=== PATIENT | female | born 1935 | race Caucasian/White ===

== ENCOUNTER 2018-07-27 13:27 | Inpatient (IN) | payer BC, MEDICARE ==
[2018-07-27] MEDS ORDERED: ALBUTEROL SULFATE/IPRATROPIUM 3 ML NEBU IH ONE (13:30)
[2018-07-27] MEDS ORDERED: METHYLPREDNISOLONE SOD SUCC/PF 125 MG/2 ML VIAL ONE (13:30)
[2018-07-27] MEDS ORDERED: METHYLPREDNISOLONE SOD SUCC/PF 40 MG/ML VIAL IV ONE (13:33)
[2018-07-27] MEDS ORDERED: LORazepam 2 MG/ML DISP.SYRIN IV ONE (13:35)
[2018-07-27 13:50] LABS: Hematocrit 46.5 % (37.0-47.0); Mean Cell Volume 95.7 fl (78-100); Mean Corpuscular Hemoglobin 30.9 pg (27-31); Mean Corpuscular Hgb Conc 32.3 g/dl (32-36); Mean Platelet Volume 9.4 fl (8-12.5); Neutrophil # 9.1 K/mm3 (1.3-6.0); Neutrophil % 68.9 % (42-75.0); Platelet Count 292 K/mm3 (150-450); Red Blood Count 4.86 M/mm3 (4.2-5.4); White Blood Count 13.2 K/mm3 (4.0-10.5)
[2018-07-27 14:06] LABS: Albumin * 3.7 gm/dl (3.4-5.0); Anion Gap 9.4 mmol/L (6.8-13.8); BUN/Creatinine Ratio 15.6 (9.0-21.6); Bilirubin, Total 0.4 mg/dL (0.0-1.1); Calcium * 9.1 mg/dL (7.9-10.9); Carbon Dioxide 28.8 mmol/L (24-32.6); Potassium 4.2 mmol/L (3.4-4.6); Total Protein 7.2 gm/dL (6.2-8.2); Troponin I 0.03 ng/mL (0.00-0.10)
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
[2018-07-27] MEDS ORDERED: RINGER'S SOLUTION,LACTATED 1,000 ML IV PRN ×2 (15:37→16:04)
[2018-07-27] MEDS ORDERED: BUPIVACAINE HCL/EPINEPHRINE/PF 30 ML VIAL IJ ONE (15:45)
[2018-07-27] MEDS ORDERED: FUROSEMIDE 20 MG TABLET PO PRN (16:05)
[2018-07-27] MEDS ORDERED: ALBUTEROL SULFATE 2.5 MG IH PRN (16:05)
[2018-07-27] MEDS ORDERED: ALBUTEROL SULFATE 2.5 MG/0.5 ML VIAL.NEB IH PRN (16:05)
[2018-07-27] MEDS ORDERED: tiZANidine HCL 4 MG TABLET PO PRN (16:05)
--- NOTE | 2018-07-27 16:22 | ANES ---
Post Anesthesia Discharge - Transfer of Care Transfer of Care handoff given to nurse: Yes - Discharge to [facility]SU Discharge to ASU-no complications/pt stable: Yes - Room as ASU.
[2018-07-27] MEDS: HYDROcodone/ACETAMINOPHEN 1 EACH TABLET PO PRN ×2 (17:36→21:56)
--- NOTE | 2018-07-27 18:12 | OR ---
Operative Report - Dictated Report Narrative: OPERATIVE REPORT DATE OF OPERATION: 07/27/2018 PREOPERATIVE DIAGNOSIS: Spontaneous right pneumothorax POSTOPERATIVE DIAGNOSIS: Same (relieved) OPERATION: Insertion of right chest tube SURGEON: Enrrique Schaefer MD ANESTHESIA: MAC/local Kemar Christianson CRNA INDICATIONS FOR PROCEDURE: The patient is an 83-year-old female with COPD. She has had recent chest congestion and a cough. Today she had the sudden onset of severe right chest pain with increased difficulty breathing. After presenting to the emergency room a chest x-ray was obtained revealing a large right pneumothorax FINDINGS: Successful placement of right chest tube with reexpansion of the right lung on post procedure chest x-ray NARRATIVE OF PROCEDURE: The patient was identified preoperatively, the surgical site was marked, and prior to the administration of anesthetic a multidisciplina ry timeout was observed. With the patient in the recumbent position the right upper chest and axilla were prepped with DuraPrep and isolated with sterile towels. A point was chosen in the anterior axillary line for tube insertion. The skin, subcutaneous tissue, and periosteum of the chest and rib were infiltrated with 0.5% Marcaine with epinephrine. A short skin incision was made. The right chest was accessed with a 20 Kinyarwanda trocar catheter. The catheter was then directed anteriorly and superiorly into the right apex. The trocar was removed and the catheter connected to underwater seal. There was prompt evacuation of air. The tube was secured to the chest with a 0 silk suture and a dressing of 4 x 4's and Medipore tape applied. The tube was additionally secured to the right lower quadrant of the abdomen with Metapore tape to prevent tension. The operative procedure was terminated at this point. The patient tolerated the anesthetic and procedure well without complication. All counts were correct. No specimens were submitted. The patient was transferred briefly to the recovery room where chest x-ray demonstrated reexpansion of the right lung and good tube position. The patient was then transferred to the floor awake and in stable condition. Reviewed and electronically signed
[2018-07-27] MEDS: MORPHINE SULFATE 2 MG/ML DISP.SYRIN IV PRN (18:13)
[2018-07-27 19:58] LABS: Urine Bilirubin Negative (NEGATIVE); Urine Blood 250 /ul (NEGATIVE); Urine Ketone Negative (NEGATIVE); Urine Nitrite Negative (NEGATIVE); Urine Protein Negative (NEGATIVE); Urine Specific Gravity 1.025 SP.GR. (1.005-1.010); Urine Urobilinogen Normal (NORMAL)
[2018-07-27 20:12] LABS: Urine Appearance Slightly Cloudy (CLEAR); Urine Bacteria 1+; Urine Color Yellow
[2018-07-27] MEDS: MELATONIN 3,000 MCG TABLET PO SCH (22:32)
[2018-07-27] MEDS: ENALAPRIL MALEATE 20 MG TABLET PO SCH (22:33)
[2018-07-27] MEDS: SIMVASTATIN 5 MG TABLET PO SCH (22:33)
[2018-07-27] MEDS: ALPRAZolam 1 MG TABLET PO SCH (22:36)
[2018-07-28] MEDS: PANTOPRAZOLE SODIUM 40 MG TABLET.EC PO SCH (06:50)
[2018-07-28] MEDS: LEVOTHYROXINE SODIUM 75 MCG TABLET PO SCH (06:50)
[2018-07-28] MEDS: HYDROcodone/ACETAMINOPHEN 1 EACH TABLET PO PRN ×4 (06:50→22:56)
--- NOTE | 2018-07-28 07:39 | PN ---
Subjective - Date and Time Seen Date: 07/28/18 Time: 07:21 Subjective Narrative: Pt. states having quite a bit of R upper back and lateral chest pain, that seems muscular in nature. She denies any particular trauma, but had been coughing very forcefully just before her acute CP/PTX, so believe this to be muscular strain. She is taking morphine or pain pills which helps her pain. Explained to her and her daughter I don't want to NSAIDs or muscle relaxors due to SE issues or somnolence issues. She does feel she is breathing better than yesterday when everything happened, but still having some breathing issues. Objective - Review of Systems Generalized/Overall Review: Reports: Malaise, Fatigue. Denies: Chills, Fever EENTM: Reports: No Symptoms Reported Respiratory: Reports: Cough, Shortness of Breath, Wheezing Cardiac: Reports: Chest Pain Abdominal: Reports: No Symptoms Reported Genitourinary Symptoms: Reports: No Symptoms Reported Musculoskeletal Complaints: Reports: Back Pain, Muscle Pain Neurological: Reports: No Symptoms Reported Skin: Reports: No Symptoms Reported Endocrine: Reports: No Symptoms Reported - Vitals Vitals: Last Vital Signs Temp 36.5 C 07/28/18 07:05 Pulse 66 07/28/18 07:05 Resp 16 07/28/18 07:05 BP 146/73 07/28/18 07:05 Pulse Ox 99 07/28/18 07:05 - Abnormal Lab Findings Abnormal Lab Findings: Abnormal Lab Results 07/27/18 07/27/18 07/27/18 Range/Units 13:34 13:44 13:44 WBC 13.2 H (4.0-10.5) K/mm3 Immature Gran % (Auto) 1.10 H (0.001-0.429) % Immature Gran # (Auto) 0.14 H (0.000-0.0310) K/mm3 Lymphocytes % 15.3 L (20-51) % Monocytes % 10.4 H (0.0-9) % Eosinophils % 3.2 H (0.0-3.0) % Basophils % 1.1 H (0.0-1.0) % Neutrophils # 9.1 H (1.3-6.0) K/mm3 Monocytes # 1.4 H (0.0-1.0) k/mm3 D-Dimer (0.19-0.49) ug/mL pCO2 45.7 H (32.0-45.0) mmHg pO2 56.5 L (83.0-108.0) mmHg Total CO2 26.1 H (19.0-24.0) mmol/L ABG O2 Sat (Measured) 87.9 L (94.0-98.0) % Est GFR (Non-Af Amer) 51 L (60-130) mL/min Random Glucose 144 H (70-110) mg/dL Urine Blood (NEGATIVE) /ul Ur Leukocyte Esterase (NEGATIVE) /ul Urine RBC (0-5) /hpf Urine WBC (0-5) /hpf Urine Bacteria (NONE) 07/27/18 07/27/18 Range/Units 13:44 19:53 WBC (4.0-10.5) K/mm3 Immature Gran % (Auto) (0.001-0.429) % Immature Gran # (Auto) (0.000-0.0310) K/mm3 Lymphocytes % (20-51) % Monocytes % (0.0-9) % Eosinophils % (0.0-3.0) % Basophils % (0.0-1.0) % Neutrophils # (1.3-6.0) K/mm3 Monocytes # (0.0-1.0) k/mm3 D-Dimer 3.31 H (0.19-0.49) ug/mL pCO2 (32.0-45.0) mmHg pO2 (83.0-108.0) mmHg Total CO2 (19.0-24.0) mmol/L ABG O2 Sat (Measured) (94.0-98.0) % Est GFR (Non-Af Amer) (60-130) mL/min Random Glucose (70-110) mg/dL Urine Blood 250 H (NEGATIVE) /ul Ur Leukocyte Esterase 25 H (NEGATIVE) /ul Urine RBC 5-10 H (0-5) /hpf Urine WBC 5-10 H (0-5) /hpf Urine Bacteria 1+ H (NONE) - Exam Constitutional: Present: Alert, Oriented x3, Cooperative, Mild distress, Moderate distress, Elderly ENT Exam: Present: hearing grossly normal Neck: Present: supple Respiratory: Present: normal breath sounds, respiratory distress - mild to moderate - on O2, can almost complete a sentence without a breath., wheezing Cardiovascular/Chest: Present: regular rate, rhythm Abdomen: Present: Normal bowel sounds, soft, nondistended Extremity: Present: other - SCD's meenu LE Skin Exam: Present: normal color Neurologic: Present: oriented x 3, depressed affect Appearance: Present: appropriate appearance, appropriate insight, neat, no memory impairment Eye contact: Present: cooperative, good eye contact, normal speech Thoughts: Present: normal thought pattern, no apparent hallucination Assessment/Plan - Problems/Diagnosis (1) Muscle spasm Problem: Acute Narrative: due to coughing. will give it time, but do pain control. No muscle relaxors for now, but might consider xanaflex. (2) Pneumothorax on right Problem: Acute Narrative: appears resolved on CXR after chest tube placement. Still with SOB but believe this is due to COPD. Chest tube managment per Dr. Schaefer. (3) SOB (shortness of breath) Problem: Acute Narrative: due to COPD (4) COPD (chronic obstructive pulmonary disease) Problem: Chronic Qualifiers: COPD type: chronic bronchitis Narrative: Wheezing this am, will do scheduled nebs during day to see if this won't help her breathing. (5) Discharge planning issues Problem: Acute Narrative: Lung re-inflated last pm. Anticipate continued chest tube to underwater seal for minimum of 24hrs, but will defer to Dr. Schaefer for management. Still anticipate her being here at least one more midnight (for a minimum of 2 midnight stay) with possibility of being here until Monday. Do believe going to [facility] or the [place] would be a very good option for her, at least during the winter. If she is unwilling to do this, would recommend at least as she is home bound and does not get out unless her family assists her.
[2018-07-28] MEDS: ALBUTEROL SULFATE 2.5 MG/0.5 ML VIAL.NEB IH SCH ×5 (08:23→22:12)
--- NOTE | 2018-07-28 10:15 | PN ---
Dictated Progress Note - Date and Time Seen: Date: 07/28/18 Time: 10:13 - Progress Note Narrative: Vital Signs - Last Taken Temp 36.5 C 07/28/18 07:05 Pulse 80 07/28/18 08:33 Resp 19 07/28/18 08:33 BP 146/73 07/28/18 07:05 Pulse Ox 99 07/28/18 08:23 Abnormal/Pending Laboratory Last 24 HRS 07/27/18 07/27/18 07/27/18 19:53 13:44 13:44 WBC Immature Gran % (Auto) Immature Gran # (Auto) Lymphocytes % Monocytes % Eosinophils % Basophils % Neutrophils # Monocytes # D-Dimer 3.31 H pCO2 pO2 Total CO2 ABG O2 Sat (Measured) Est GFR (Non-Af Amer) 51 L Random Glucose 144 H Urine Blood 250 H Ur Leukocyte Esterase 25 H Urine RBC 5-10 H Urine WBC 5-10 H Urine Bacteria 1+ H 07/27/18 07/27/18 13:44 13:34 WBC 13.2 H Immature Gran % (Auto) 1.10 H Immature Gran # (Auto) 0.14 H Lymphocytes % 15.3 L Monocytes % 10.4 H Eosinophils % 3.2 H Basophils % 1.1 H Neutrophils # 9.1 H Monocytes # 1.4 H D-Dimer pCO2 45.7 H pO2 56.5 L Total CO2 26.1 H ABG O2 Sat (Measured) 87.9 L Est GFR (Non-Af Amer) Random Glucose Urine Blood Ur Leukocyte Esterase Urine RBC Urine WBC Urine Bacteria Culture 07/27/18 18:00 Urine Culture - Preliminary Urine,Voided No Growth VS have been normal. Eupnic on 2L NC. No obvious clinical air leak, and CXR shows re-expansion Will trial clamp tube and obtain CXR in 4 hrs
[2018-07-28] MEDS: POLYETHYLENE GLYCOL 3350 119 GM BTL PO SCH (10:17)
[2018-07-28] MEDS: CITALOPRAM HYDROBROMIDE 10 MG TABLET PO SCH (10:19)
[2018-07-28] MEDS: ENALAPRIL MALEATE 20 MG TABLET PO SCH ×2 (10:20→20:32)
[2018-07-28] MEDS: amLODIPine BESYLATE 5 MG TABLET PO SCH (10:22)
[2018-07-28] MEDS: MELATONIN 3,000 MCG TABLET PO SCH (20:32)
[2018-07-28] MEDS: SIMVASTATIN 5 MG TABLET PO SCH (20:33)
[2018-07-28] MEDS: ALPRAZolam 1 MG TABLET PO SCH (20:35)
[2018-07-29] MEDS: ALBUTEROL SULFATE 2.5 MG/0.5 ML VIAL.NEB IH SCH ×6 (02:02→23:41)
[2018-07-29] MEDS: HYDROcodone/ACETAMINOPHEN 1 EACH TABLET PO PRN ×3 (04:44→21:03)
[2018-07-29] MEDS: MORPHINE SULFATE 2 MG/ML DISP.SYRIN IV PRN (07:01)
[2018-07-29] MEDS: LEVOTHYROXINE SODIUM 75 MCG TABLET PO SCH (07:05)
[2018-07-29] MEDS: PANTOPRAZOLE SODIUM 40 MG TABLET.EC PO SCH (07:05)
--- NOTE | 2018-07-29 08:07 | PN ---
Subjective - Date and Time Seen Date: 07/29/18 Time: 07:53 Subjective Narrative: Having increased pain this am, but appears to be more muscles of her upper back, not her lung/PTX. she has slept well as she normally sleeps on her right side. Does state that her breathing is better. she declined going to assisted living as she tried [facility] and it wasn't a very "warm" place. She hasn't gone to see if [place] would be better. She wants to try to go home, but is willing to change if she feels she can't manage at home "alone". (She has family and friends, but they can't be there all the time). Nursing does note that her pain has been 7/10, IV morphine given. Pt. states it does help. Chest tube has been clamped since yesterday afternoon without any sx. CXR shows continued re-expansion after 4 hrs. Objective - Review of Systems Generalized/Overall Review: Reports: Fatigue. Denies: Chills, Fever EENTM: Reports: No Symptoms Reported Respiratory: Reports: Cough. Denies: Shortness of Breath, Wheezing Cardiac: Reports: Chest Pain. Denies: Palpitations Abdominal: Reports: No Symptoms Reported Genitourinary Symptoms: Reports: No Symptoms Reported Musculoskeletal Complaints: Reports: Back Pain Neurological: Reports: No Symptoms Reported Skin: Reports: No Symptoms Reported Endocrine: Reports: No Symptoms Reported - Vitals Vitals: Last Vital Signs Temp 36.4 C 07/29/18 06:45 Pulse 79 07/29/18 07:00 Resp 19 07/29/18 07:00 BP 161/86 H 07/29/18 06:45 Pulse Ox 98 07/29/18 07:52 - Exam Constitutional: Present: Alert, Oriented x3, Cooperative, Mild distress, Elderly ENT Exam: Present: hearing grossly normal Neck: Present: supple Respiratory: Present: lungs clear, no respiratory distress - able to complete sentence. Absent: wheezing Cardiovascular/Chest: Present: regular rate, rhythm Abdomen: Present: Normal bowel sounds Extremity: Present: other - SCD's meenu LE Skin Exam: Present: normal color Neurologic: Present: normal mood/affect, oriented x 3 Appearance: Present: appropriate appearance, appropriate insight, neat, no memory impairment Eye contact: Present: cooperative, good eye contact, normal speech Thoughts: Present: normal thought pattern, no apparent hallucination Assessment/Plan - Problems/Diagnosis (1) Muscle spasm Problem: Acute Narrative: d/w her good hydration. consider biofreeze to R upper back/shoulder (2) Pneumothorax on right Problem: Acute Narrative: resolved with Chest tube. defer to Dr. Schaefer for management. Will watch her for 24hrs post removal of the Chest tube to be sure PTX remains resolved. (3) SOB (shortness of breath) Problem: Acute Narrative: resolved with nebs and Chest tube/PTX resolution. (4) COPD (chronic obstructive pulmonary disease) Problem: Chronic Qualifiers: COPD type: chronic bronchitis Narrative: better with scheduled nebs. continue. (5) Back pain Problem: Acute Qualifiers: Back pain location: thoracic back pain Chronicity: acute Back pain latera lity: right Qualified Code(s): M54.6 - Pain in thoracic spine Narrative: due to muscle spasm. could have a component from the PTX. continue to control pain with norco and prn IV morphine. will need to control pain with PO meds in order to discharge home. (6) Hypoxia Problem: Acute Narrative: due to pneumothorax, compounded by Chronic COPD. sats are improved after chest tube placement. will wean off O2. (7) Acute respiratory failure Problem: Acute Qualifiers: Respiratory failure complication: hypoxia Qualified Code(s): J96.01 - Acute respiratory failure with hypoxia Narrative: due to Pneumothorax (PTX) combined with Chronic COPD with possible acute exacerbation of COPD given her wheezing and increased cough that probably caused her PTX. Her sats are improved so will work to wean off O2, keeping sats at least in the low 90's. Will Ambulate after the Chest tube is out to be sure she maintains her sats > 88% when ambulating. (8) Discharge planning issues Problem: Acute Narrative: hopefully can discharge home in the am if Chest tube is out, she's off O2 and ambulatory sats are > 88% and her pain is controlled with PO meds only.
[2018-07-29] MEDS: CITALOPRAM HYDROBROMIDE 10 MG TABLET PO SCH (08:33)
[2018-07-29] MEDS: POLYETHYLENE GLYCOL 3350 119 GM BTL PO SCH (08:33)
[2018-07-29] MEDS: amLODIPine BESYLATE 5 MG TABLET PO SCH (08:34)
[2018-07-29] MEDS: ENALAPRIL MALEATE 20 MG TABLET PO SCH ×2 (08:34→21:02)
--- NOTE | 2018-07-29 10:20 | PN ---
Dictated Progress Note - Date and Time Seen: Date: 07/29/18 Time: 10:00 - Progress Note Narrative: Vital Signs - Last Taken Temp 36.4 C 07/29/18 06:45 Pulse 71 07/29/18 08:34 Resp 19 07/29/18 07:00 BP 161/86 H 07/29/18 08:34 Pulse Ox 98 07/29/18 07:52 Culture 07/27/18 18:00 Urine Culture - Preliminary Urine,Voided No Pathogens Isolated 07/27/18 13:44 Blood Culture - Preliminary Blood NO GROWTH 24 HOURS VS normal, no problems breathing CXR shows full expansion with chest tube clamped Chest tube removed, occlusive dressing placed Would re-check CXR in AM prior to D/C. Leave current dressing x 24hrs, then change daily, with suture removal 08/03--08/07
[2018-07-29] MEDS: MELATONIN 3,000 MCG TABLET PO SCH (21:02)
[2018-07-29] MEDS: SIMVASTATIN 5 MG TABLET PO SCH (21:02)
[2018-07-29] MEDS: ALPRAZolam 1 MG TABLET PO SCH (21:03)
[2018-07-30] MEDS: HYDROcodone/ACETAMINOPHEN 1 EACH TABLET PO PRN ×2 (01:04→06:48)
[2018-07-30] MEDS: ALBUTEROL SULFATE 2.5 MG/0.5 ML VIAL.NEB IH SCH ×3 (03:46→10:56)
[2018-07-30] MEDS: PANTOPRAZOLE SODIUM 40 MG TABLET.EC PO SCH (06:58)
[2018-07-30] MEDS: LEVOTHYROXINE SODIUM 75 MCG TABLET PO SCH (06:58)
--- NOTE | 2018-07-30 07:26 | DS ---
(1) Muscle spasm Problem: Acute (2) Pneumothorax on right Problem: Acute (3) SOB (shortness of breath) Problem: Acute (4) COPD (chronic obstructive pulmonary disease) Problem: Chronic Qualifiers: COPD type: chronic bronchitis (5) Back pain Problem: Acute Qualifiers: Back pain location: thoracic back pain Chronicity: acute Back pain laterality: right Qualified Code(s): M54.6 - Pain in thoracic spine (6) Hypoxia Problem: Acute (7) Acute respiratory failure Problem: Acute Qualifiers: Respiratory failure complication: hypoxia Qualified Code(s): J96.01 - Acute respiratory failure with hypoxia (8) Discharge planning issues Problem: Acute Description of Stay: Pt. Admitted for Chest tube placement due to acute respiratory distress/failure with hypoxia from a pneumothorax. Pt. did receive immediate relief and there was immediate expansion of the lung. Tube was clamped within 18 hrs of placement and removed within 40hrs of placement, with maintenance of lung re- expansion. She remained on O2 for the next 36hrs, with some of this being attributed to COPD exacerbation, which was improved with scheduled nebs. Her pain initially was being controlled with both PO [place] and IV Morphine, but the morphine was able to be weaned off completely 24hrs prior to D/C and her pain was 3-4 on [place] at time of discharge. She did have quite a bit of pain from muscle spasms of the right upper back and shoulder, but this was improved with [place], xanaflex, morphine and topical biofreeze. It was recommended to her to continue the biofreeze OTC to this area until resolved. Will do Rx for [place] and xanaflex. She was d/c'd home in stable condition, with good BS on the right, scattered wheezes still on the left - do will continue scheduled nebs at home. She was offered HH but declined. She was recommended assisted living, but declined. Her blood pressure remained stable, though were elevated at times when she was in pain. Procedures Performed: see notes below List Procedures: Chest tube placement by Dr. Schaefer. Results and Findings: Pending Mircobiology Results 07/27/18 13:44 Blood Blood Culture - Preliminary NO GROWTH AFTER 48 HOURS 07/27/18 18:00 Urine,Voided Urine Culture - Preliminary No Pathogens Isolated Lab Pending Results 07/27/18 13:34: pCO2 45.7 H, pO2 56.5 L, HCO3 24.7, Total CO2 26.1 H, Base Excess -1.3, ABG pH 7.35, ABG O2 Sat (Measured) 87.9 L 07/27/18 13:44: WBC 13.2 H, RBC 4.86, Hgb 15.0, Hct 46.5, MCV 95.7, MCH 30.9, MCHC 32.3, RDW 13.0, Plt Count 292, MPV 9.4, Immature Gran % (Auto) 1.10 H, Immature Gran # (Auto) 0.14 H, Neutrophils % 68.9, Lymphocytes % 15.3 L, Monocytes % 10.4 H, Eosinophils % 3.2 H, Basophils % 1.1 H, Nucleated RBC % 0.0, Neutrophils # 9.1 H, Lymphocytes # 2.02, Monocytes # 1.4 H, Eosinophils # 0.4, Absolute Basophils 0.1 07/27/18 13:44: Sodium 134, Plasma Sodium 135, Potassium 4.2, Chloride 100, Carbon Dioxide 28.8, Anion Gap 9.4, BUN 17 D, Creatinine 1.09, Est GFR (Non-Af Amer) 51 L, BUN/Creatinine Ratio 15.6, Random Glucose 144 H, Calcium 9.1, Calcium Adj for Albumin 9.0, Total Bilirubin 0.4, AST 21, ALT 24, Alkaline Phosphatase 113, Troponin I 0.030, Total Protein 7.2, Albumin 3.7 07/27/18 13:44: D-Dimer 3.31 H 07/27/18 13:44: Lactic Acid, Venous 1.0 07/27/18 14:15: Influenza Type A Ag Negative, Influenza Type B Ag Negative 07/27/18 19:53: Urine Color Yellow, Urine Appearance Slightly cloudy, Urine pH 6.0, Ur Specific [place] 1.025, Urine Protein Negative, Urine Glucose (UA) Negative, Urine Ketones Negative, Urine Blood 250 H, Urine Nitrate Negative, Urine Bilirubin Negative, Urine Urobilinogen Normal, Ur Leukocyte Esterase 25 H, Urine RBC 5-10 H, Urine WBC 5-10 H, Ur Epithelial Cells None seen, Urine Bacteria 1+ H, Urine Culture Comments Culture to follow Discharge Location: Home Disposition: Home self-care Condition: Stable Discharge Activity: Activity as tolerated - use walker when ambulating. Discharge Diet: General/regular food Referrals: Tayo Corbett MD [Primary Care Provider] - 08/03/18 Prescriptions (Any new or edited meds): Albuterol Sulfate [Albuterol Sulfate 2.5 MG/0.5ML] 2.5 mg IH Q4HRT #60 vial.neb HYDROcodone/ACETAMINOPHEN [[place] 5-325] 1 each PO Q4H PRN #42 tablet PRN Reason: pain Polyethylene Glycol 3350 [Miralax] 17 gm PO DAILY #1 btl tiZANidine HCL [Tizanidine HCl] 4 mg PO Q8H PRN #30 cap PRN Reason: MUSCLE SPASMS Complete Home Medications List: Complete Home Medication List: Lovastatin 10 mg PO HS 02/14/18 Melatonin 10 mg PO HS 02/14/18 Multivitamin [One Daily Essential] 1 ea PO DAILY 02/14/18 amlodipine 5 mg tablet 5 mg PO DAILY #90 tab 03/16/18 citalopram 10 mg tablet 10 mg PO DAILY #90 tab 03/16/18 enalapril maleate 20 mg tablet 20 mg PO BID #180 tab 03/16/18 levothyroxine 75 mcg tablet 75 mcg PO DAILY #90 tab 03/16/18 alprazolam 0.5 mg tablet 1 mg PO HS #30 tab 05/24/18 pantoprazole 40 mg tablet,delayed release 40 mg PO DAILY #30 tab 07/04/18 Calc/D3/Mag/Zn/Lucy/Nikolas/[place] [Calcium 600 mg Plus Vit D Tab] 1 each PO DAILY 07/27/18 Naproxen 500 mg PO BID 07/27/18 Oxybutynin Chloride [Ditropan] 5 mg PO TID 07/27/18 Albuterol Sulfate [Albuterol Sulfate 2.5 MG/0.5ML] 2.5 mg IH Q4HRT #60 vial.neb 07/30/18 HYDROcodone/ACETAMINOPHEN [[place] 5-325] 1 each PO Q4H PRN #42 tablet 07/30/18 Polyethylene Glycol 3350 [Miralax] 17 gm PO DAILY #1 btl 07/30/18 tiZANidine HCL [Tizanidine HCl] 4 mg PO Q8H PRN #30 cap 07/30/18
[2018-07-30] MEDS: amLODIPine BESYLATE 5 MG TABLET PO SCH (09:07)
[2018-07-30] MEDS: CITALOPRAM HYDROBROMIDE 10 MG TABLET PO SCH (09:07)
[2018-07-30] MEDS: ENALAPRIL MALEATE 20 MG TABLET PO SCH (09:07)
[2018-07-30] MEDS: POLYETHYLENE GLYCOL 3350 119 GM BTL PO SCH (09:08)
[2018-07-30 12:59] VITALS: BP 126/47
== END 2018-07-30 13:40 | disposition home or self-care (01) | DRG 199 ==
LOC: ER 13:27 → MS 13:27 → AMB 14:51 → MS 15:40
PROVIDERS: ADMIT Surgery; ATTEND Surgery
DX: F32.9 Major depressive disorder, single episode, unspecified; Z88.8 Allergy status to other drugs, medicaments and biological substances; M62.838 Other muscle spasm; Z82.49 Family history of ischemic heart disease and other diseases of the circulatory system; J93.9 Pneumothorax, unspecified; K59.03 Drug induced constipation; Z85.51 Personal history of malignant neoplasm of bladder; Z80.52 Family history of malignant neoplasm of bladder; J44.1 Chronic obstructive pulmonary disease with (acute) exacerbation; E03.9 Hypothyroidism, unspecified; M19.90 Unspecified osteoarthritis, unspecified site; E11.9 Type 2 diabetes mellitus without complications; Z86.718 Personal history of other venous thrombosis and embolism; M54.6 Pain in thoracic spine; Z88.1 Allergy status to other antibiotic agents; Z86.010 Personal history of colon polyps; Z23 Encounter for immunization; G47.00 Insomnia, unspecified; B18.2 Chronic viral hepatitis C; I10 Essential (primary) hypertension; J96.01 Acute respiratory failure with hypoxia; Z83.3 Family history of diabetes mellitus; F41.9 Anxiety disorder, unspecified; Z87.891 Personal history of nicotine dependence
CPT/HCPCS: 36415; 36600; 71010; 71045; 80053; 81001; 82803; 83605; 84484; 85025; 85379; 87040; 87086; 87400; 87449; 90686; 93005; 94640; 94664; 96374; 99285